=== PATIENT | male | born 1980 | race Caucasian/White ===

== ENCOUNTER 2020-10-18 18:01 | Emergency (ER) | payer OTHER ==
[~2020-10-18] VITALS: Ht 167.6 cm; Wt 86.4 kg
[2020-10-18 18:54] LABS: BASO % 0.4 % (0.0-2.0); EOS # 0.1 (0.0-0.7); EOS % 1.7 % (0-4.0); GRAN # 3.4 (1.4-6.5); GRAN % 62.5 % (42.2-75.2); HEMATOCRIT 37.8 % (42.0-52.0); HEMOGLOBIN 13.5 g/dl (13.5-18.0); LYMPH # 1.2 (1.2-3.4); LYMPH % 22.7 % (20.0-51.0); MEAN CELL VOLUME 87 fl (80.0-100.0); MEAN CORPUSCULAR HEMOGLOBIN 31 pg (27.0-31.0); MEAN CORPUSCULAR HGB CONC 36 g/dl (33.0-37.0); MEAN PLATELET VOLUME 9.7 fl (7.4-10.4); MONO # 0.7 (0.1-0.6); PLATELET COUNT 126 K/mm3 (130-400); RED BLOOD COUNT 4.33 M/mm3 (4.20-5.60)
[2020-10-18 19:03] LABS: ALBUMIN 4.1 gm/dL (3.5-5.0); BILIRUBIN,TOTAL 0.9 mg/dL (0.0-1.0); C-REACTIVE PROTEIN 1.8 mg/dL (0.0-0.9); CREATININE, serum 1.28 (0.66-1.25); TOTAL PROTEIN 7.4 gm/dL (6.4-8.2)
[2020-10-18 19:46] LABS: INR 1.1 (0.8-3.0); PROTHROMBIN TIME 12.3 SECONDS (9.7-12.8)
[2020-10-18 20:17] LABS: STREP SCREEN NEGATIVE
[2020-10-18] MEDS ORDERED: MOTRIN 400400 MG/TAB PO (20:19)
[2020-10-18] MEDS ORDERED: ZITHROMAX Z PA250 MG PO (20:19)
[2020-10-18] MEDS ORDERED: AMOXICILLIN 8751 TAB PO (20:19)
[2020-10-18 20:21] VITALS: TEMP 99
[2020-10-18 20:45] VITALS: BP 130/80; PULSE 72
== END 2020-10-18 20:50 | disposition home or self-care (01) ==
LOC: COL.ER 18:01
PROVIDERS: Emergency Medicine
DX: R50.9 Fever, unspecified (principal); D84.821 Immunodeficiency due to drugs; R51.9 Headache, unspecified; E86.0 Dehydration; C15.9 Malignant neoplasm of esophagus, unspecified; C78.7 Secondary malignant neoplasm of liver and intrahepatic bile duct; C78.00 Secondary malignant neoplasm of unspecified lung; C79.70 Secondary malignant neoplasm of unspecified adrenal gland; Z20.822 Contact with and (suspected) exposure to COVID-19
CPT/HCPCS: J0696; J1885; J2405; J7030